=== PATIENT | female | born 1990 | race Caucasian/White ===

== ENCOUNTER 2021-09-29 21:59 | Emergency (ER) | payer MEDICAID, OTHER ==
[~2021-09-29] VITALS: Ht 165.1 cm; Wt 85.4 kg
[~2021-09-29 21:59] MED LIST: INSU100S45 SUBQ; LANTUS SUBQ
[2021-09-29 22:15] VITALS: BP 138/74
--- NOTE | 2021-09-29 22:23 | NUR ---
LWBS. AFTER I CHECKED PT'S VITAL SIGNS AND ACCUCHECK PT STATED SHE FELT BETTER AND FEELS GOOD ENOUGH TO GO HOME.
== END 2021-09-29 22:23 | disposition left against medical advice (07) ==
LOC: MED 21:59
DX: R03.0 Elevated blood-pressure reading, without diagnosis of hypertension (principal); Z53.21 Procedure and treatment not carried out due to patient leaving prior to being seen by health care provider
CPT/HCPCS: 82948; 99281

== ENCOUNTER 2022-02-03 18:41 | Emergency (ER) | payer OTHER ==
[~2022-02-03] VITALS: Ht 165.1 cm; Wt 81.6 kg
[2022-02-03 19:05] VITALS: BP 187/102
[2022-02-03 21:26] LABS: BASOPHILS # (AUTO) 0.1 K/uL (0.00-0.22); BASOPHILS % (AUTO) 0.6 % (0.0-2.0); EOSINOPHILS # (AUTO) 0.2 K/uL (0-0.4); EOSINOPHILS % (AUTO) 2.3 % (0.0-4.0); HEMATOCRIT 37.2 % (36-48); HEMOGLOBIN 12.7 g/dL (12.0-16.0); LYMPHOCYTES # (AUTO) 2.4 K/uL (2.5-16.5); LYMPHOCYTES % (AUTO) 24.5 % (20.5-51.1); MEAN CORPUSCULAR HEMOGLOBIN 30 pg (27-31); MEAN CORPUSCULAR HGB CONC 34 g/dL (33-37); MEAN CORPUSCULAR VOLUME 86.9 fL (80-94); MONOCYTES # (AUTO) 0.6 K/uL (0.8-1.0); MONOCYTES % (AUTO) 6.1 % (1.7-9.3); NEUTROPHILS # (AUTO) 6.4 K/uL (1.8-7.7); NEUTROPHILS % (AUTO) 66.5 % (42.2-75.2); PLATELET COUNT (AUTO) 379 K/uL (140-450); RED BLOOD CELL COUNT(AUTO) 4.27 MIL/uL (4.20-5.40); RED CELL DISTRIBUTION WIDTH 12.5 % (11.6-13.7); WHITE BLOOD COUNT (AUTO) 9.7 K/uL (4.8-10.8)
[2022-02-03 21:46] LABS: ALBUMIN 3.2 g/dL (3.4-5.0); ANION GAP 16.6 (8-16); ASPARTATE AMINOTRANSFERASE 11 U/L (15-37); CARBON DIOXIDE 24.5 mmol/L (21-32); CHLORIDE 100 mmol/L (98-107); CREATININE 1.4 mg/dL (0.6-1.3); GFR ARICAN-AMERICAN 57 mL/min (>90); GLUCOSE 347 mg/dL (74-106); POTASSIUM 4.1 mmol/L (3.5-5.1); SODIUM SERUM 137 mmol/L (136-145); TOTAL BILIRUBIN 0.4 mg/dL (0.0-1.0); UREA NITROGEN, BLOOD 23 mg/dL (7-18)
--- NOTE | 2022-02-03 23:57 | NUR ---
PT REFUSED TO GIVE URINE
[2022-02-04 00:18] LABS: ACETONE, SERUM MODERATE (NEGATIVE)
--- NOTE | 2022-02-04 00:54 | NUR ---
CALLED PT FROM [facility]OB[facility] AND OUTSIDE NO ANSWER. CALLED NUMBER ON CHART NO ANSWER.
--- NOTE | 2022-02-04 00:55 | NUR ---
PATIENT ELOPED FROM FACILITY. DISCHARGE INSTRUCTIONS NOT GIVEN TO PATIENT. DR. BANEGAS NOTIFIED.
--- NOTE | 2022-02-04 00:55 | NUR ---
CALLED EMERGENCY CONTACT NO ANSWER.
== END 2022-02-04 00:55 | disposition left against medical advice (07) ==
LOC: MED 18:41
DX: N17.9 Acute kidney failure, unspecified (principal); E11.10 Type 2 diabetes mellitus with ketoacidosis without coma
CPT/HCPCS: 36415; 80053; 82009; 84702; 85025; 99283; 99291; 99292